=== PATIENT | male | born 1990 | race Hispanic/Latino ===

== ENCOUNTER 2017-11-08 19:30 | Outpatient (CLI) | payer OTHER | END 2017-11-08 19:31 | disposition home or self-care (01) | LOC: SLEEPLAB 19:30 | PROVIDERS: ATTEND Family Medicine | DX: G47.33 Obstructive sleep apnea (adult) (pediatric); Z68.42 Body mass index [BMI] 45.0-49.9, adult; E66.9 Obesity, unspecified | CPT/HCPCS: 95811 ==

== ENCOUNTER 2018-04-12 09:40 | Emergency (ER) | payer OTHER ==
--- NOTE | 2018-04-12 11:01 | RAD ---
RIGHT FOOT THREE VIEWS: HISTORY: Injured while walking. Possible fracture. COMPARISON: None. FINDINGS: Mild hallux valgus deformity. Lisfranc alignment is maintained. Joint spaces are preserved. There is no fracture. IMPRESSION: No fracture. POS: [facility]
[2018-04-12] MEDS ORDERED: Acetaminophen 500 MG TAB ONE (12:26)
[2018-04-12] MEDS ORDERED: traMADol HCl 50 MG TAB ONE (12:28)
== END 2018-04-12 12:54 | disposition home or self-care (01) ==
LOC: ERS 09:40
DX: M79.671 Pain in right foot (principal); F98.8 Other specified behavioral and emotional disorders with onset usually occurring in childhood and adolescence; Z79.899 Other long term (current) drug therapy

== ENCOUNTER 2019-06-26 12:07 | Outpatient (CLI) | payer OTHER ==
--- NOTE | 2019-06-26 12:33 | RAD ---
XR Chest Pa Lat STANDARD HISTORY: Chest pain COMPARISON: None FINDINGS: The heart size is normal. The lungs are well expanded without focal areas of consolidation, pneumothorax or pleural effusions. IMPRESSION: No radiographic evidence of acute cardiopulmonary process.
== END 2019-06-26 12:08 | disposition home or self-care (01) ==
LOC: SCSRAD 12:07
PROVIDERS: ATTEND Family Medicine
DX: R07.1 Chest pain on breathing (principal)
CPT/HCPCS: 71046

== ENCOUNTER 2021-05-27 13:07 | Outpatient (CLI) | payer BC | END 2021-05-27 13:08 | disposition home or self-care (01) | LOC: BICRAD 13:07 | PROVIDERS: ATTEND Family Medicine | DX: B94.8 Sequelae of other specified infectious and parasitic diseases (principal); J45.909 Unspecified asthma, uncomplicated; R05.1 Acute cough | CPT/HCPCS: 71046 ==